=== PATIENT | female | born 1940 | race Caucasian/White ===

== ENCOUNTER 2017-05-16 08:51 | Day surgery (SDC) | payer MEDICARE, MEDICAID ==
[2017-05-16] MEDS ORDERED: Lactated Ringer's 500 ML IV ONE (10:06)
[2017-05-16 10:20] VITALS: BMI 33.6
[2017-05-16] MEDS ORDERED: Propofol 10 mg/ml Inj (20 ML) ONE (11:28)
[2017-05-16] MEDS ORDERED: Midazolam 2 MG/2 ML VIAL ONE (11:28)
[2017-05-16 12:03] VITALS: TEMP 96.9; O2SAT 99
[2017-05-16 12:06] VITALS: BP 137/45; PULSE 55; RESP 12
== END 2017-05-16 13:17 | disposition home or self-care (01) ==
LOC: H.ENDO 08:51
PROVIDERS: ATTEND Internal Medicine Gastroenterology
DX: Z85.048 Personal history of other malignant neoplasm of rectum, rectosigmoid junction, and anus (principal); E11.9 Type 2 diabetes mellitus without complications; E78.5 Hyperlipidemia, unspecified; I10 Essential (primary) hypertension
CPT/HCPCS: 45378; J2001; J2250; J2704; J7120